=== PATIENT | female | born 1980 | race Two or more races ===

== ENCOUNTER 2016-12-28 08:24 | Emergency (ER) | payer OTHER ==
[2016-12-28 08:30] VITALS: BP 100/63; PULSE 89; RESP 18; TEMP 97.9; O2SAT 97
[2016-12-28] MEDS ORDERED: TDAP ADULT 0.5 ML INJ (BOOSTRIX) IM ONE (08:39)
--- NOTE | 2016-12-28 08:42 | EDPHY ---
H & P Time Seen by Provider: 12/28/16 08:38 HPI/ROS: CHIEF COMPLAINT: Stepped on a tim nail HISTORY OF PRESENT ILLNESS: Approximately 12 hours ago went in the yd to deal with the sprinklers and stepped on a tim nail. Presents with pain and tetanus not up-to-date. REVIEW OF SYSTEMS: No weakness or numbness in the toes no foreign body sensation. PAST MEDICAL HISTORY: Negative for diabetes or other immunocompromised. General Appearance: Alert and conversant, cooperative. Puncture wound on the plantar surface of the right foot just proximal to the great toe MTP joint. No pus or drainage. Normal motor and sensory distally. Normal perfusion. No bony tenderness. Emergency Department course/MDM: Patient was barefoot and did not have puncture wound through a shoe. She brought in the nail and it is pretty clearly intact. Tetanus updated. Wound care discussed. Does not have evidence of infection. Low suspicion for foreign body. Low suspicion for fracture. Smoking Status: Never smoked Constitutional: Initial Vital Signs Temperature (C) 36.6 C 12/28/16 08:28 Heart Rate 89 12/28/16 08:28 Respiratory Rate 18 12/28/16 08:28 Blood Pressure 100/63 12/28/16 08:28 O2 Sat (%) 97 12/28/16 08:28 O2 Delivery Mode Room Air Allergies/Adverse Reactions: No Known Allergies Allergy (Verified 12/28/16 08:27) Home Medications: Medication Instructions Recorded Adderall 5 mg Tablet 12/30/14 Levothyroxine 12/30/14 MDM/Departure - MDM Medications Given: Discontinued Medications Diphtheria/Tetanus/Acell Pertussis (Boostrix) 0.5 ml IM .ONCE ONE Stop: 12/28/16 08:40 Last Admin: 12/28/16 08:44 Dose: 0.5 ml - Depart Disposition: Home, Routine, Self-Care Clinical Impression: Puncture wound of right foot Qualifiers: Encounter type: initial encounter Qualified Code(s): S91.331A - Puncture wound without foreign body, right foot, initial encounter Condition: Good Instructions: Puncture Wound (ED) Additional Instructions: You got a tetanus booster vaccine today. Limited weight-bearing on the foot for the next 24 hours. Referrals: Viktoria Reynoso MD [Primary Care Provider] - As per Instructions
== END 2016-12-28 08:51 | disposition home or self-care (01) ==
DX: S91.331A Puncture wound without foreign body, right foot, initial encounter (principal); Z23 Encounter for immunization; W45.0XXA Nail entering through skin, initial encounter; Y92.007 Garden or yard of unspecified non-institutional (private) residence as the place of occurrence of the external cause